=== PATIENT | male | born 1985 | race Two or more races ===

== ENCOUNTER 2017-03-20 18:47 | Emergency (ER) | payer SELFPAY ==
[~2017-03-20] VITALS: Ht 170.2 cm; Wt 59.4 kg
[2017-03-20] MEDS ORDERED: KETOROLAC 30 MG/1 ML ONE (19:19)
[2017-03-20] MEDS ORDERED: DIPHENHYDRAMINE 50 MG/ML, 1ML ONE (19:20)
[2017-03-20] MEDS ORDERED: METOCLOPRAMIDE 5 MG/ML, 2ML ONE (19:20)
[2017-03-20] MEDS ORDERED: SODIUM CHLORIDE 0.9% 1,000ML IVBOLUS ONE (19:30)
[2017-03-20] MEDS ORDERED: SODIUM CHLORIDE FLUSH 10ML SYR IVF ONE (19:30)
[2017-03-20] MEDS ORDERED: KETOROLAC 30 MG/1 ML IVPush ONE (19:30)
[2017-03-20] MEDS ORDERED: DIPHENHYDRAMINE 50 MG/ML, 1ML IVPush ONE (19:30)
[2017-03-20] MEDS ORDERED: METOCLOPRAMIDE 5 MG/ML, 2ML IVPush ONE (19:30)
[2017-03-20 19:31] LABS: HEMATOCRIT 44.5 % (39.2-51.8); HEMOGLOBIN 15.4 g/dL (13.7-18.0); WHITE BLOOD COUNT 4.8 x10^3/uL (3.4-10)
[2017-03-20 19:42] LABS: ASPARTATE AMINO TRANSFERASE 23 U/L (15-37); BLOOD UREA NITROGEN 12 mg/dL (7-18)
[2017-03-20 20:00] LABS: RAPID INFLUENZA A Negative (Negative)
[2017-03-20 20:01] LABS: RAPID INFLUENZA B Negative (Negative)
[2017-03-20 21:07] VITALS: BP 128/68
== END 2017-03-20 21:11 | disposition home or self-care (01) ==
LOC: ED 21:00
DX: R51 Headache (principal); B34.9 Viral infection, unspecified
CPT/HCPCS: 36415; 71010; 80053; 81003; 85025; 87400; 96361; 96374; 96375; 99285; J1200; J1885; J2765; J7030